=== PATIENT | male | born 1990 | race Caucasian/White ===

== ENCOUNTER 2019-01-14 14:04 | Emergency (ER) | payer OTHER ==
[~2019-01-14] VITALS: Ht 185.4 cm; Wt 79.4 kg
[2019-01-14] MEDS ORDERED: KETO10TA2 PO (14:58)
[2019-01-14] MEDS ORDERED: CIPRO500 MG PO (14:58)
== END 2019-01-14 15:12 | disposition home or self-care (01) ==
LOC: ER 14:04
DX: S50.01XA Contusion of right elbow, initial encounter (principal); W22.8XXA Striking against or struck by other objects, initial encounter; Y93.89 Activity, other specified; Y92.89 Other specified places as the place of occurrence of the external cause; Y99.8 Other external cause status